=== PATIENT | female | born 1985 | race Caucasian/White ===

== ENCOUNTER 2018-05-13 12:14 | Inpatient (IN) | payer MEDICARE, MEDICAID ==
[~2018-05-13] VITALS: Ht 165.1 cm; Wt 85.7 kg
[2018-05-13] MEDS ORDERED: NS(*) 0.9% 1000 ML BAG 1,000 ML IV ONE (12:30)
[2018-05-13] MEDS ORDERED: ONDANSETRON 4 MG/2 ML VIAL IVP ONE (12:35)
--- NOTE | 2018-05-13 12:37 | ER Report ---
History and Physical Time Seen By MD: 12:25 Hx. of Stated Complaint: PT WAS ESTABLISHING CARE WITH DR LOVE WHEN PT BECAME VERY NAUSEATED VOMITING DRY HEAVING AND FINGER BEDS TURNED BLUE O2 SATS R/A 87% PT PLACED ON O2 AND NEW TO ER. HPI/ROS CHIEF COMPLAINT: Weakness HISTORY OF PRESENT ILLNESS: 32-year-old female comes emergency Department today from the outpatient facility establishing care with a new primary care she is monotone patient while there became somewhat diaphoretic she's had chronic Snyder placed secondary to her history of spinal bifida scoliosis and hydrocephalus. Patient states that she was feeling weak position at the time noted lack of color started noticing that she was starting to get a little shaky to the Center here for evaluation of possible sepsis. On arrival here she is been coughing for last couple of days she does not sensate urinary tract infection however her mom states that her sediment is a baseline for her patient denies any chest pain at this time or additional complaints noted REVIEW OF SYSTEMS: Respiratory: No cough, no dyspnea. Cardiovascular: No chest pain, no palpitations. Gastrointestinal: No vomiting, no abdominal pain. Musculoskeletal: No back pain. Remainder of the 14 system rev: Yes Allergies: Coded Allergies: ceftriaxone (Verified Allergy, Severe, RASH, 05/13/18) iodine (Verified Allergy, Intermediate, 05/13/18) BLOOD BLISTERS FORM meperidine (Verified Allergy, Intermediate, RASH, 05/13/18) nitrofurantoin (Verified Allergy, Intermediate, RASH, 05/13/18) tramadol (Verified Allergy, Unknown, NAUSEA/VOMITING, 05/13/18) SHAKES alcohol (Verified Adverse Reaction, Intermediate, RASH, 05/13/18) RUBBING ALCHOL adhesive tape (Verified Adverse Reaction, Mild, RASH, 05/13/18) latex (Verified Adverse Reaction, Mild, 05/13/18) PRECAUTIONS vancomycin (Verified Adverse Reaction, Mild, RASH, 05/13/18) CAN BE USED IF BENADRYL IS USED AHEAD OF TIME Cephalosporins (Verified Adverse Reaction, Unknown, RASH, 05/13/18) NAUSEA Home Meds Reported Medications Ondansetron Hcl (ZOFRAN) 4 Mg Tablet, 4 MG PO PRN, TAB 05/13/18 Phenazopyridine Hcl (URINARY PAIN RELIEF) 97.5 Mg Tablet, 1 TAB PO BID 05/13/18 [place]-3/Dha/Epa/Fish Oil (Fish Oil Conc 1,000 mg Softgel) 1,000 Mg (120 Mg-180 Mg) Capsule, 1 TAB PO DAILY 05/13/18 Cranberry Extract (CRANBERRY) Unknown Strength Capsule, PO, CAPSULE 05/13/18 Citalopram Hydrobromide (CITALOPRAM HBR) 20 Mg Tablet, 20 MG PO DAILY, #5 TAB 05/13/18 Linaclotide (LINZESS) 290 Mcg Capsule, 290 MCG PO DAILY, CAPSULE 05/13/18 Furosemide (FUROSEMIDE) 40 Mg Tablet, 1 TAB PO BID, TAB 05/13/18 Cholecalciferol (Vitamin D3) (VITAMIN D) 1,000 Unit Capsule, 1000 UNIT PO DAILY , CAPSULE 05/13/18 Potassium Citrate (POTASSIUM CITRATE) 10 Meq Tablet.er, 10 MEQ PO TID 05/13/18 Omeprazole (OMEPRAZOLE) 40 Mg Capsule.dr, 40 MG PO QDAY, CAP 05/13/18 Cilostazol (CILOSTAZOL) 50 Mg Tablet, 50 MG PO BID 05/13/18 Cephalexin Monohydrate (CEPHALEXIN) 500 Mg Cap, 2 CAP PO BID, CAP 05/13/18 Sennosides (SENNA) 8.6 Mg Tablet, 8.6 MG PO BID 05/13/18 Reviewed Nurses Notes: Yes Old Medical Records Reviewed: Yes Smoking Status: Never Smoker Exposure to Second Hand Smoke?: Yes (family smokes outside) Constitutional Vital Sign - Last 24 Hours 05/13/18 05/13/18 05/13/18 05/13/18 12:20 12:26 12:29 12:30 Temp 100.6 Pulse 136 132 Resp 22 23 B/P (MAP) 124/92 (103) 124/92 146/130 (135) Pulse Ox 93 94 O2 Delivery Nasal Cannula Nasal Cannula O2 Flow Rate 2 05/13/18 05/13/18 05/13/18 05/13/18 12:44 12:45 12:59 13:00 Pulse 139 129 Resp 16 B/P (MAP) 114/75 (88) 125/71 (89) Pulse Ox 99 O2 Delivery Nasal Cannula O2 Flow Rate 2 05/13/18 05/13/18 13:14 13:15 Pulse 130 Resp 13 B/P (MAP) 127/69 (88) Pulse Ox 94 Physical Exam General Appearance: The patient is alert, has no immediate need for airway protection and no current signs of toxicity. Appears pale Eyes: Pupils equal and round no injection. Respiratory: Chest is non tender, lungs are clear to auscultation. Cardiac: regular rate and rhythm [ ] Gastrointestinal: Abdomen is soft and non tender, no masses, bowel sounds normal. Musculoskeletal: Neck: Neck is supple and non tender. Extremities have full range of motion and are non tender. Skin: Pale, diaphoretic Neurologic examination patient at baseline with decrease lower 70 functionality was unremarkable DIFFERENTIAL DIAGNOSIS: After history and physical exam differential diagnosis was considered for sepsis unit tract infection pneumonia bronchitis viral infection Medical Decision Making Data Points Laboratory Hematology Test 05/13/18 12:53 05/13/18 13:12 Urine Color Gloria Urine Clarity Cloudy Urine pH 5.0 pH (4.8-9.5) Urine Specific [place] 1.014 Urine Protein 30 mg/dL (NEGATIVE) Urine Glucose (UA) Negative mg/dL (NEGATIVE) Urine Ketones Negative mg/dL (NEGATIVE) Urine Blood Large (NEGATIVE) Urine Nitrite Positive (NEGATIVE) Urine Bilirubin Negative (NEGATIVE) Urine Urobilinogen 4.0 mg/dL (0.2-1.9) Urine Leukocyte Esterase Moderate (NEGATIVE) Urine RBC 58 /HPF (0-2/HPF) Urine WBC 514 /HPF (0-5/HPF) Urine WBC Clumps Many /HPF Urine Squamous Epithelial Cells Many /LPF (NONE-FEW) Urine Amorphous Crystals Few /HPF Urine Bacteria Few /HPF (NONE-FEW) Urine Mucus Few /HPF (NONE-FEW) Lactate 4.9 mmol/L (0.7-2.1) Chemistry Test 05/13/18 12:53 05/13/18 13:12 Urine Color Gloria Urine Clarity Cloudy Urine pH 5.0 pH (4.8-9.5) Urine Specific [place] 1.014 Urine Protein 30 mg/dL (NEGATIVE) Urine Glucose (UA) Negative mg/dL (NEGATIVE) Urine Ketones Negative mg/dL (NEGATIVE) Urine Blood Large (NEGATIVE) Urine Nitrite Positive (NEGATIVE) Urine Bilirubin Negative (NEGATIVE) Urine Urobilinogen 4.0 mg/dL (0.2-1.9) Urine Leukocyte Esterase Moderate (NEGATIVE) Urine RBC 58 /HPF (0-2/HPF) Urine WBC 514 /HPF (0-5/HPF) Urine WBC Clumps Many /HPF Urine Squamous Epithelial Cells Many /LPF (NONE-FEW) Urine Amorphous Crystals Few /HPF Urine Bacteria Few /HPF (NONE-FEW) Urine Mucus Few /HPF (NONE-FEW) Lactate 4.9 mmol/L (0.7-2.1) Coagulation Test 05/13/18 13:12 Urinalysis Test 05/13/18 12:53 Urine Color Gloria Urine Clarity Cloudy Urine pH 5.0 pH (4.8-9.5) Urine Specific [place] 1.014 Urine Protein 30 mg/dL (NEGATIVE) Urine Glucose (UA) Negative mg/dL (NEGATIVE) Urine Ketones Negative mg/dL (NEGATIVE) Urine Blood Large (NEGATIVE) Urine Nitrite Positive (NEGATIVE) Urine Bilirubin Negative (NEGATIVE) Urine Urobilinogen 4.0 mg/dL (0.2-1.9) Urine Leukocyte Esterase Moderate (NEGATIVE) Urine RBC 58 /HPF (0-2/HPF) Urine WBC 514 /HPF (0-5/HPF) Urine WBC Clumps Many /HPF Urine Squamous Epithelial Cells Many /LPF (NONE-FEW) Urine Amorphous Crystals Few /HPF Urine Bacteria Few /HPF (NONE-FEW) Urine Mucus Few /HPF (NONE-FEW) ED Course/Re-evaluation ED Course ED clinical course due to-year-old female presents with concern for sepsis she has both urinary and pulmonary infection started on broad-spectrum antibiotics including Primaxin patient got fluid resuscitation E Guest of 4.1 white count elevated at greater than 32,000 will be admitting today under sepsis protocol [place] acid elevated Decision to Disposition Date: May 13, 2018 Decision to Disposition Time: 13:40 Depart Departure Latest Vital Signs Vital Signs Date Time Temp Pulse Resp B/P (MAP) Pulse Ox O2 Delivery O2 Flow Rate FiO2 05/13/18 13:15 127/69 (88) 05/13/18 13:14 130 13 94 05/13/18 12:44 Nasal Cannula 2 05/13/18 12:26 100.6 Impression: Primary Impression: History of sepsis Additional Impressions: UTI (urinary tract infection) Pneumonia Condition: Improved Disposition: Admitted from ER Referrals: KERMIT LOVE MD (PCP) Problem Qualifiers DESMOND SALCIDO MD May 13, 2018 12:37
--- NOTE | 2018-05-13 13:04 | RADIOLOGY IMAGING REPORT ---
FACILITY: [facility] [place] PATIENT NAME: Nguyen Arce : 1985 MR: [id number] V: [id number] EXAM DATE: ORDERING PHYSICIAN: DESMOND SALCIDO TECHNOLOGIST: Location: [facility] Patient: Nguyen Arce : 1985 Visit/Account:[id number] Date of Sevice: 05/13/2018 CHEST SINGLE AP HISTORY: Vomiting. Sepsis. COMPARISON: None FINDINGS: Cardiomediastinal contours: The heart is mildly enlarged but this could be related to the portable na ture of the examination. Lungs and pleura: There is parenchymal density in the right lung base medially. This could represent in part normal pulmonary markings but an emergent infiltrate cannot be excluded. The left chest is clear. Bones/soft tissues: Status post extensive thoracolumbar fusion with posterior fusion rods. Catheters: The right chest port catheter tip is at the cavoatrial junction. IMPRESSION: 1. Parenchymal density medially in the right lung base. It could be related to normal pulmonary mar kings but an emergent infiltrate cannot be excluded. 2. The left chest is clear. 3. Satisfactory appearance of right internal jugular vein chest port and bilateral lumbar fusion dayami s. Report Dictated By: Antonio Duggan MD at 05/13/2018 12:58 PM Report E-Signed By: Antonio Duggan MD at 05/13/2018 12:59 PM WSN:[id number]
[2018-05-13] MEDS ORDERED: CLINDAMYCIN(*) 600 MG/NS 50 ML 50 ML ONE (13:19)
[2018-05-13] MEDS ORDERED: CLINDAMYCIN 600 MG/4 ML 600 MG in NS(*) 0.9% 100 ML BAG 100 ML IVPB ONE (13:20)
[2018-05-13] MEDS ORDERED: CLINDAMYCIN(*) 600 MG/NS 50 ML 50 ML IVPB ONE (13:25)
[2018-05-13] MEDS ORDERED: IMIPENEM/CILASTA(*) 500MG VIAL 1,000 MG in NS(*) 0.9% 250 ML BAG 250 ML IVPB ONE (13:40)
[2018-05-13 13:57] LABS: INR 1.16
[2018-05-13 14:32] VITALS: BP 98/71
--- NOTE | 2018-05-13 15:50 | History & Physical ---
History of Present Illness Chief Complaint Fever History of Present Illness 32yo female with PMHx significant for spina bifida with lower extremity paresis , neurogenic bladder s/p suprapubic catheter placement. She currently resides with her mother who is her rehab care assistant. Over the past 2-3 days she was noted to have some episodic nausea with vomiting, cough, fever, malaise, and cloudy urine. She was evaluated in her PCP's office and referred to the ER for evaluation. She was found to be hypoxic with elevated WBC count and lactate with evidence of RML pneumonia and UTI. She was recommended for admission. History Problems: (1) Spina bifida Status: Chronic (2) Hydrocephalus Status: Chronic (3) Suprapubic catheter Status: Chronic (4) Sleep related hypoxia Status: Chronic (5) Chronic constipation Status: Chronic (6) Bilateral lower extremity edema Status: Chronic (7) Swallowing disorder Status: Chronic (8) Chronic nausea Status: Chronic (9) RTA (renal tubular acidosis) Status: Chronic (10) Depression Status: Chronic (11) Obesity Status: Chronic (12) Nephrolithiasis Status: Chronic (13) History of sepsis Status: Chronic (14) Fusion of spine Status: Chronic (15) Presence of cerebrospinal fluid drainage device Status: Chronic (16) History of cholecystectomy Status: Chronic Home Meds Reported Medications Ondansetron Hcl (ZOFRAN) 4 Mg Tablet, 4 MG PO PRN, TAB 05/13/18 Phenazopyridine Hcl (URINARY PAIN RELIEF) 97.5 Mg Tablet, 1 TAB PO BID 05/13/18 [place]-3/Dha/Epa/Fish Oil (Fish Oil Conc 1,000 mg Softgel) 1,000 Mg (120 Mg-180 Mg) Capsule, 1 TAB PO DAILY 05/13/18 Cranberry Extract (CRANBERRY) Unknown Strength Capsule, PO, CAPSULE 05/13/18 Citalopram Hydrobromide (CITALOPRAM HBR) 20 Mg Tablet, 20 MG PO DAILY, #5 TAB 05/13/18 Linaclotide (LINZESS) 290 Mcg Capsule, 290 MCG PO DAILY, CAPSULE 05/13/18 Furosemide (FUROSEMIDE) 40 Mg Tablet, 1 TAB PO BID, TAB 05/13/18 Cholecalciferol (Vitamin D3) (VITAMIN D) 1,000 Unit Capsule, 1000 UNIT PO DAILY , CAPSULE 05/13/18 Potassium Citrate (POTASSIUM CITRATE) 10 Meq Tablet.er, 10 MEQ PO TID 05/13/18 Omeprazole (OMEPRAZOLE) 40 Mg Capsule.dr, 40 MG PO QDAY, CAP 05/13/18 Cilostazol (CILOSTAZOL) 50 Mg Tablet, 50 MG PO BID 05/13/18 Cephalexin Monohydrate (CEPHALEXIN) 500 Mg Cap, 2 CAP PO BID, CAP 05/13/18 Sennosides (SENNA) 8.6 Mg Tablet, 8.6 MG PO BID 05/13/18 Allergies: Coded Allergies: ceftriaxone (Verified Allergy, Severe, RASH, 05/13/18) iodine (Verified Allergy, Intermediate, 05/13/18) BLOOD BLISTERS FORM meperidine (Verified Allergy, Intermediate, RASH, 05/13/18) nitrofurantoin (Verified Allergy, Intermediate, RASH, 05/13/18) tramadol (Verified Allergy, Unknown, NAUSEA/VOMITING, 05/13/18) SHAKES alcohol (Verified Adverse Reaction, Intermediate, RASH, 05/13/18) RUBBING ALCHOL adhesive tape (Verified Adverse Reaction, Mild, RASH, 05/13/18) latex (Verified Adverse Reaction, Mild, 05/13/18) PRECAUTIONS vancomycin (Verified Adverse Reaction, Mild, RASH, 05/13/18) CAN BE USED IF BENADRYL IS USED AHEAD OF TIME Cephalosporins (Verified Adverse Reaction, Unknown, RASH, 05/13/18) NAUSEA Patient History: FH: ADHD (attention deficit hyperactivity disorder) BROTHER OR SISTER FH: COPD (chronic obstructive pulmonary disease) FATHER, , Age:54 FH: bipolar disorder BROTHER OR SISTER FH: emphysema FATHER, , Age:54 FH: hypothyroidism MOTHER, Age:59 FH: ovarian cancer BROTHER OR SISTER Hx Smoking: No Smoking Status: Never Smoker Exposure to Second Hand Smoke?: Yes (family smokes outside) Hx Alcohol Use: No Hx Substance Use Disorder: No Social Drug Use: Never Review of Systems Constitutional: Fever, Chills Neurological: Weakness Eyes: No Vision Change ENT: No Hearing Loss Cardiovascular: No Chest Pain, No Palpitations Respiratory: Shortness of Breath, Cough Gastrointestinal: Nausea, Vomiting, No Diarrhea, Constipation Musculoskeletal: Impaired Mobility Psychiatric: Depression, Anxiety Exam Vital Signs Vital Signs Date Time Temp Pulse Resp B/P (MAP) Pulse Ox O2 Delivery O2 Flow Rate FiO2 05/13/18 14:57 98 Nasal Cannula 2.0 05/13/18 14:32 99.4 117 18 98/71 (80) General Appearance: Alert, Awake Neuro: Other (bilateral lower extremity paralysis with significant atrophy) Eyes: PERRLA ENT: Oropharynx Clear, Other (face symmetric) Cardiovascular: Other (Regular slightly tachycardic) Respiratory: Other (scattered rhonchi/no wheezes) Chest: No Tenderness, Other (port right upper chest) GI: Abd Soft and Non-Tender : Other (suprapubic cath site is clean/no drainage noted) Lymph: No Adenopathy Extremities: Warm, Perfused, Other (lower extremities atrophic) Integumentary: Other (healed surgical scars) Psych: Alert & Oriented X3 Medical Decision Making Data Points Item Value Date Time White Blood Count 35.2 k/uL *H 05/13/18 1200 Hemoglobin 13.8 g/dL 05/13/18 1200 Hematocrit 41.8 % 05/13/18 1200 Platelet Count 455 K/uL H 05/13/18 1200 Sodium Level 133 mmol/L L 05/13/18 1200 Potassium Level 3.9 mmol/L 05/13/18 1200 Chloride Level 94 mmol/L L 05/13/18 1200 Carbon Dioxide Level 22 mmol/L 05/13/18 1200 Blood Urea Nitrogen 14 mg/dl 05/13/18 1200 Creatinine 0.90 mg/dl 05/13/18 1200 Glomerular Filtration Rate Calc > 60.0 05/13/18 1200 Random Glucose 113 mg/dl H 05/13/18 1200 Item Value Date Time Urine Color Gloria 05/13/18 1253 Urine Clarity Cloudy 05/13/18 1253 Urine pH 5.0 pH 05/13/18 1253 Urine Specific [place] 1.014 05/13/18 1253 Urine Protein 30 mg/dL 05/13/18 1253 Urine Glucose (UA) Negative mg/dL 05/13/18 1253 Urine Ketones Negative mg/dL 05/13/18 1253 Urine Blood Large 05/13/18 1253 Urine Nitrite Positive H 05/13/18 1253 Urine Bilirubin Negative 05/13/18 1253 Urine Urobilinogen 4.0 mg/dL H 05/13/18 1253 Urine Leukocyte Esterase Moderate H 05/13/18 1253 Urine RBC 58 /HPF 05/13/18 1253 Urine WBC 514 /HPF 05/13/18 1253 Urine WBC Clumps Many /HPF 05/13/18 1253 Urine Squamous Epithelial Cells Many /LPF H 05/13/18 1253 Urine Amorphous Crystals Few /HPF 05/13/18 1253 Urine Bacteria Few /HPF 05/13/18 1253 Urine Mucus Few /HPF 05/13/18 1253 Thyroid Stimulating Hormone (TSH) 1.05 uIU/ml 05/13/18 1200 Vitamin D 25-Hydroxy 38 ng/ml 05/13/18 1200 B-Type Natriuretic Peptide 64 pg/ml 05/13/18 1200 Albumin 4.0 g/dl 05/13/18 1200 Total Protein 7.2 g/dl 05/13/18 1200 C-Reactive Protein 23.2 mg/dl H 05/13/18 1200 Alkaline Phosphatase 136 U/L H 05/13/18 1200 Alanine Aminotransferase (ALT/SGPT) 24 U/L 05/13/18 1200 Aspartate Amino Transf (AST/SGOT) 20 U/L 05/13/18 1200 Total Bilirubin 1.4 mg/dl H 05/13/18 1200 Percent Iron Saturation 8.0 % 05/13/18 1200 Total Iron Binding Capacity 311 ug/dl 05/13/18 1200 Iron Level 25 ug/dl L 05/13/18 1200 Calcium Level 9.3 mg/dl 05/13/18 1200 Lactate 4.9 mmol/L *H 05/13/18 1312 Activated Partial Thromboplast Time 30 seconds 05/13/18 1312 Prothromb Time International Ratio 1.16 05/13/18 1312 Prothrombin Time 14.9 seconds H 05/13/18 1312 D-Dimer Quantitative (PE/DVT) 2.65 ug/ml H 05/13/18 1306 Assessment and Plan Problems: (1) Pneumonia Status: Acute Assessment & Plan: It appears she has a RML infiltrate. It sounds like she has some risk for aspiration as well. Will place on IV Primaxin and supplement oxygen as needed. Cultures have been obtained in the ER. She may need swallow evaluation as well. (2) UTI (urinary tract infection) Status: Acute Assessment & Plan: Possible suprapubic cath associated. Urine culture has been obtained. She is on IV Primaxin as noted above. Will modify antibiotics as needed. (3) Spina bifida Status: Chronic Assessment & Plan: With bilateral lower paresis. She has had previous spine fusion and apparently has some skin issues at times related to the hardware - none currently. (4) Hydrocephalus Status: Chronic Assessment & Plan: She has CSF shunt in place. (5) GERD (gastroesophageal reflux disease) Status: Chronic Assessment & Plan: Continue PPI therapy. Copies to: KERMIT LOVE MD Venous Thromboembolism Antithrombotics Is Pt On Any Antithrombotics?: Yes Exam Sepsis Risk: Possible Sepsis Risk PRINCESS CAMARGO MD May 13, 2018 15:50
[2018-05-13] MEDS: NS(*) 0.9% 1000 ML BAG 1,000 ML IV PRN (16:17)
[2018-05-13 18:02] VITALS: BP 89/63
[2018-05-13] MEDS ORDERED: IV BOLUS 500 ML IVSOL IV ONE (18:10)
[2018-05-13] MEDS: ACETAMINOPHEN 325 MG TAB PO PRN (18:34)
[2018-05-13 19:38] VITALS: BP 111/57
[2018-05-13] MEDS: IMIPENEM/CILASTA(*) 500MG VIAL 500 MG in NS(*) 0.9% 100 ML BAG 100 ML IVPB SCH (19:56)
[2018-05-13] MEDS: CILOSTAZOL 100 MG TAB PO SCH (21:26)
[2018-05-13] MEDS: SENNOSIDES 8.6 MG TAB PO SCH (21:26)
[2018-05-13] MEDS: PROMETHAZINE 25 MG/ML 1 ML AMP IVP PRN (22:24)
[2018-05-13 23:59] VITALS: BP 104/45
[2018-05-14] VITALS (16 sets, daily range): BP systolic 81–125; BP diastolic 45–75; Ht 165.1 cm; Wt 85.7 kg
[2018-05-14] MEDS: NS(*) 0.9% 1000 ML BAG 1,000 ML IV PRN (00:44)
[2018-05-14] MEDS: TIGECYCLINE 50 MG INJS 50 MG in NS(*) 0.9% 100 ML BAG 100 ML IVPB SCH ×2 (00:45→13:28)
[2018-05-14] MEDS: ACETAMINOPHEN 325 MG TAB PO PRN ×3 (00:47→17:22)
[2018-05-14] MEDS: IMIPENEM/CILASTA(*) 500MG VIAL 500 MG in NS(*) 0.9% 100 ML BAG 100 ML IVPB SCH ×4 (01:40→21:12)
[2018-05-14] MEDS ORDERED: NS(*) 0.9% 1000 ML BAG 1,000 ML IV PRN (01:48)
[2018-05-14] MEDS: PROMETHAZINE 25 MG/ML 1 ML AMP IVP PRN ×3 (04:58→16:39)
[2018-05-14 06:08] LABS: PLATELET COUNT, AUTOMATED 335 K/uL (150-450)
[2018-05-14] MEDS ORDERED: KCL (*) 20 MEQ/100 ML PREMIX 100 ML IV ONE ×2 (06:30→11:00)
[2018-05-14] MEDS: ENOXAPARIN 40 MG/0.4ML SYR SC SCH (08:42)
[2018-05-14] MEDS: CILOSTAZOL 100 MG TAB PO SCH ×2 (08:44→21:12)
[2018-05-14] MEDS: CITALOPRAM HYDROBROM 20 MG TAB PO SCH (08:44)
[2018-05-14] MEDS: SENNOSIDES 8.6 MG TAB PO SCH ×2 (08:45→21:00)
[2018-05-14] MEDS: CHOLECALCIFEROL 1000 UNIT TAB PO SCH (08:45)
[2018-05-14] MEDS: PANTOPRAZOLE SOD 40 MG TABEC PO SCH (08:45)
[2018-05-14] MEDS: LINACLOTIDE 290 MCG CAPSULE PO SCH (09:00)
--- NOTE | 2018-05-14 11:43 | Hospitalist Progress Note ---
Subjective Progress Notes Subjective Sleepy this morning. Still having fevers and tachycardic. Physical Exam Vital Signs Date Time Temp Pulse Resp B/P (MAP) Pulse Ox O2 Delivery O2 Flow Rate FiO2 05/14/18 11:03 98.9 106 104/68 (80) 95 Nasal Cannula 2.0 05/14/18 02:29 16 Intake and Output 05/15/18 07:00 Intake Total 160 ml Output Total 425 ml Balance -265 ml Intake Oral 160 ml Output Urine Total 425 ml General Appearance: No Acute Distress (Sweaty. Sleepy) Neuro: Other (Awakens to voice and answers questions/follows commands) Respiratory: Clear to Auscultation GI: Soft and Non-Tender Integumentary: Other (Low back over a scarred area there is a couple mm openning in the skin that appears to tunnel inferiorly. No surrounding erythema. Clear discharge) Result Diagram: 05/14/1842 05/14/18541 Assessment and Plan Problems: (1) Sepsis Status: Acute Assessment & Plan: She presented with a couple days of N/V/cough/cloudy urine/ fever. She continues to be tachycardic, but it is trending down. She continues to spike temperatures to 103. BP is improving. Lactate has normalized. Blood culture without growth (reportedly not done from port). Sputum culture with normal lily so far. Urine culture with GNR x2. (2) Pneumonia Status: Acute Assessment & Plan: It appears she has a RML infiltrate. It sounds like she has some risk for aspiration as well. On IV Primaxin/Tigecycline and supplement oxygen as needed. Cultures have been obtained in the ER. She may need swallow evaluation as well. (3) UTI (urinary tract infection) Status: Acute Assessment & Plan: Possible suprapubic cath associated. Urine culture has been obtained. She is on IV Primaxin/Tigecycline as noted above. Will modify antibiotics as needed. (4) Hypokalemia Status: Acute Assessment & Plan: Secondary to chronic Lasix use. Will replace IV and restart potassium citrate. (5) Spina bifida Status: Chronic Assessment & Plan: With bilateral lower paresis. She has had previous spine fusion and apparently has intermittent skin breakdown over hardware/scar ( chronically on Keflex). There is a couple mm area of skin breakdown. Will ask PT to evaluate. (6) Hydrocephalus Status: Chronic Assessment & Plan: She has CSF shunt in place. (7) GERD (gastroesophageal reflux disease) Status: Chronic Assessment & Plan: Continue PPI therapy. Exam Sepsis Risk: Sepsis Risk STEPHANIE VASQUEZ MD May 14, 2018 11:43
[2018-05-14] MEDS: POTASSIUM CITRATE 540 MG TABCR PO SCH ×2 (14:30→21:12)
[2018-05-14] MEDS ORDERED: MAGNESIUM SUL* 2 GM/50 ML IVPB 50 ML IVPB ONE (16:00)
[2018-05-14] MEDS: KCL (*) 20 MEQ/100 ML PREMIX 100 ML IV SCH ×2 (17:41→21:11)
[2018-05-14] MEDS ORDERED: KETOROLAC 30 MG/ML VIAL IVP ONE (18:55)
[2018-05-15] MEDS: ACETAMINOPHEN 500 MG TAB PO PRN ×3 (00:05→20:52)
[2018-05-15 00:11] VITALS: BP 102/71
[2018-05-15] MEDS: TIGECYCLINE 50 MG INJS 50 MG in NS(*) 0.9% 100 ML BAG 100 ML IVPB SCH ×2 (00:16→14:52)
[2018-05-15] MEDS: IMIPENEM/CILASTA(*) 500MG VIAL 500 MG in NS(*) 0.9% 100 ML BAG 100 ML IVPB SCH ×5 (03:27→22:46)
[2018-05-15] MEDS ORDERED: NS(*) 0.9% 250 ML BAG 250 ML ONE (04:35)
[2018-05-15 05:50] LABS: PLATELET COUNT, AUTOMATED 344 K/uL (150-450)
[2018-05-15] MEDS ORDERED: KCL (*) 20 MEQ/100 ML PREMIX 100 ML IV SCH (08:30)
--- NOTE | 2018-05-15 08:39 | Hospitalist Progress Note ---
Subjective Progress Notes Subjective The patient is having some upper abdominal pain today. Physical Exam Vital Signs Date Time Temp Pulse Resp B/P (MAP) Pulse Ox O2 Delivery O2 Flow Rate FiO2 05/15/18 00:11 98.3 93 18 102/71 (81) 92 Nasal Cannula 2.0 General Appearance: Alert, Awake, No Acute Distress Neuro: Other (No sensation in the lower extremities.) Eyes: PERRLA Cardiovascular: Regular Rate and Rhythm Respiratory: Clear to Auscultation (Anteriorly) GI: Soft and Non-Tender Musculoskeletal: Other (Both LE malformed, small legs and feet.) Extremities: Warm, Perfused, Edema (Both feet puffy, LE with edema bilaterally) Integumentary: Skin Intact without Lesion / Mass Psych: Alert & Oriented X3, Appropriate Mood & Affect Result Diagram: 05/15/1854205/15/18542 Assessment and Plan Problems: (1) Sepsis Status: Acute Assessment & Plan: She presented with a couple days of N/V/cough/cloudy urine/ fever. She is no longer tachycardic. T max past 24 hours is 100.1. BP is improving. Lactate has normalized. Blood culture without growth (reportedly not done from port). Sputum culture with normal lily so far. Urine culture with Enterobacter cloacae complex sensitive to Primaxin. There is also a second gram negative dayami and a gram positive dayami with ID and susceptibility to follow. (2) Pneumonia Status: Acute Assessment & Plan: It appears she has a RML infiltrate. It sounds like she has some risk for aspiration as well. She is refusing a swallowing evaluation (has been done before per the patient's report) and requests to be back on diet as tolerated. She continues on IV Primaxin/Tigecycline and supplement oxygen as needed. Cultures as above. (3) UTI (urinary tract infection) Status: Acute Assessment & Plan: Possible suprapubic cath associated. Urine culture has been obtained. See above. She will continue on IV Primaxin/Tigecycline as noted above until further ID and sensitivities are available. (4) Hypokalemia Status: Acute Assessment & Plan: Secondary to chronic Lasix use. Will replace IV and restart potassium citrate. (5) Spina bifida Status: Chronic Assessment & Plan: With bilateral lower paresis. She has had previous spine fusion and apparently has intermittent skin breakdown over hardware/scar ( chronically on Keflex). There is a couple mm area of skin breakdown. PT wound care has been consulted. (6) Hydrocephalus Status: Chronic Assessment & Plan: She has CSF shunt in place. (7) GERD (gastroesophageal reflux disease) Status: Chronic Assessment & Plan: Continue PPI therapy. Time Spent on Plan of Care: < 30 min Exam Sepsis Risk: Sepsis Risk REYNALDO CAMARGO MD May 15, 2018 08:39
[2018-05-15] MEDS: LINACLOTIDE 290 MCG CAPSULE PO SCH (09:00)
[2018-05-15] MEDS: SENNOSIDES 8.6 MG TAB PO SCH ×2 (09:00→20:52)
[2018-05-15 09:36] VITALS: BP 106/68
[2018-05-15] MEDS: PANTOPRAZOLE SOD 40 MG TABEC PO SCH (10:22)
[2018-05-15] MEDS: CILOSTAZOL 100 MG TAB PO SCH ×2 (10:22→20:52)
[2018-05-15] MEDS: CHOLECALCIFEROL 1000 UNIT TAB PO SCH (10:23)
[2018-05-15] MEDS: CITALOPRAM HYDROBROM 20 MG TAB PO SCH (10:23)
[2018-05-15] MEDS: POTASSIUM CITRATE 540 MG TABCR PO SCH ×3 (10:23→20:52)
[2018-05-15] MEDS: ENOXAPARIN 40 MG/0.4ML SYR SC SCH (10:24)
[2018-05-15] MEDS ORDERED: NS(*) 0.9% 1000 ML BAG 1,000 ML ONE (10:51)
[2018-05-15] MEDS: CELECOXIB 200 MG CAP PO PRN (12:47)
[2018-05-15] MEDS: PROMETHAZINE 25 MG/ML 1 ML AMP IVP PRN ×3 (12:47→23:45)
--- NOTE | 2018-05-15 14:17 | Medical Nutrition Therapy ---
Nutrition Anthropometrics Height (Inches): 65.00 Height (Calculated Centimeters: 165.037394 Weight (Pounds): 189 Weight (Calculated Kilograms): 85.729 Jorge Nutrition Score: Adequate Jorge Nutrition Risk Score: 13 Dietary Referral Nutrition Risk Factors: Nutrition Risk Comment: Physical Findings Physical Appearance: Obese BMI 30-39 Skin Appearance Skin Appearance: Edema Edema Location Modifier: Both Edema Location: Lower Extremity Type of Edema: Degree of Edema: Gastrointestinal Symptoms GI Symtoms: Nausea Tube Present: Bowel Sounds: Recent Bowel Pattern: Incontinent Stool Characteristics: Brown, Soft Nutrition/Food History No Significant Nutr. HX Nutritional Diagnosis Nutritional Risk Acuity 2: Swallowing Problem, Sepsis Nutritional Risk Acuity 3: Nausea Past Medical History: spina bifida with bilateral lower paresis, GERD Nutritional Acuity: 2-Moderate Nutrition Diagnosis: Inadequate Food Intake Nutrition Etiology: Physiological Causes Nutrition Problem/Etiology/Sym: Inadequate Oral Intake related to decreased ability to consume sufficient energy, e.g. vomiting/nausea AEB reports of insufficient intake of energy from diet when compared to requirements and low albumin status. Energy Requirement: 2200 ([place] Jeor: Actual BW X 1.4) Protein Requirement: 69 (Actual BW Kg X .8) Fluid Requirement: 2200 Diet Type: Dysphagia Stage 3 Nutrition Intervention: Cont diet as ordered, Encourage intake Nutrition Monitoring & Eval Nutrition Goals: Eat 50-100% Meal RD Patient Assessment Time: [address] Assessment Type: RD Re-Assessment Patient Nutrition Acuity: 2-Moderate Follow Up Date: May 17, 2018 Nutritional Comment: 05/14. Pt was admitted b/c of weakness for a couple days. Pt has sepsis, pneumonia, UTI and experiencing nausea. WBC is high 28.3, and seeing a depletion of potassium 2.8 and Alb 2.9. Pt has hc spina bifida and is receiving Dysphagia Diet Stage 3. Pt ate 100% of dinner meal. Cont to monitor and encourage intake. MR 8/3 High WBC, Alb 2.9, Ca+8.1, Mg 2.3, Na+136. Continues to receive Dysphagia Stage 3 diet with 0% intake today d/t nausea/vomiting. Follow clinical progression, wt, labs, intake, etc. -KEITH BRIGHT May 15, 2018 14:17
[2018-05-15 14:55] VITALS: BP 105/64
[2018-05-15 19:12] VITALS: BP 100/61
[2018-05-15] MEDS ORDERED: KCL (*) 20 MEQ/100 ML PREMIX 100 ML IV ONE (19:30)
[2018-05-15 20:40] VITALS: BP 107/80
[2018-05-15 22:45] VITALS: BP 108/73
[2018-05-16] MEDS: CELECOXIB 200 MG CAP PO PRN (00:55)
[2018-05-16] MEDS: IMIPENEM/CILASTA(*) 500MG VIAL 500 MG in NS(*) 0.9% 100 ML BAG 100 ML IVPB SCH ×2 (04:17→11:08)
[2018-05-16 04:21] VITALS: BP 114/61
[2018-05-16 06:20] LABS: PLATELET COUNT, AUTOMATED 370 K/uL (150-450)
[2018-05-16 07:56] VITALS: BP 116/67
[2018-05-16] MEDS: LINACLOTIDE 290 MCG CAPSULE PO SCH (09:00)
[2018-05-16] MEDS ORDERED: KCL (*) 20 MEQ/100 ML PREMIX 100 ML IV ONE (10:00)
[2018-05-16] MEDS: POTASSIUM CITRATE 540 MG TABCR PO SCH ×2 (11:09→14:43)
[2018-05-16] MEDS: ENOXAPARIN 40 MG/0.4ML SYR SC SCH (11:09)
[2018-05-16] MEDS: CILOSTAZOL 100 MG TAB PO SCH (11:10)
[2018-05-16] MEDS: CITALOPRAM HYDROBROM 20 MG TAB PO SCH (11:10)
[2018-05-16] MEDS: PANTOPRAZOLE SOD 40 MG TABEC PO SCH (11:10)
[2018-05-16] MEDS: CHOLECALCIFEROL 1000 UNIT TAB PO SCH (11:10)
[2018-05-16 11:25] VITALS: BP 115/74
--- NOTE | 2018-05-16 12:06 | EKG ---
FACILITY: [facility] - [place] PATIENT NAME: CORIE KNIGHT : [id number] MR: [id number] V: [id number] EXAM DATE: ORDERING PHYSICIAN: YAKOV GOODSON TECHNOLOGIST: OMA Mckenzie Reason : EVALUATE QT Blood Pressure : / mmHG Vent. Rate : 103 BPM Atrial Rate : 103 BPM P-R Int : 136 ms QRS Dur : 074 ms QT Int : 342 ms P-R-T Axes : 031 000 012 degrees QTc Int : 448 ms Sinus tachycardia Abnormal ECG No previous ECGs available Confirmed by Yakov Duke ([id number]) on 05/16/2018 5:54:04 PM Referred By: KEMI Confirmed By:Yakov Goodson
[2018-05-16] MEDS ORDERED: LEVOFLOXACIN 750 MG TAB PO SCH (12:40)
[2018-05-16] MEDS ORDERED: LEVO750T27 PO (12:44)
--- NOTE | 2018-05-16 12:57 | Hospitalist Depart ---
Discharge Summary Reason for Hosp/Final Diag: (1) Sepsis Status: Acute Hospital Course & Plan: Resolved. She presented with a couple days of N/V/cough /cloudy urine/fever. Afebrile over 48 hours, Lactate has normalized. Blood culture no growth to date. Urine culture with Enterobacter cloacae complex and pseudomonas sensitive to Levaquin. EKG obtained as had been on 3 QT prolonging medications and considering Levaquin for outpt therapy. (2) Pneumonia Status: Acute Hospital Course & Plan: It appears she has a RML infiltrate. It sounds like she has some risk for aspiration as well. She is refusing a swallowing evaluation (has been done before per the patient's report) and requests to be back on diet as tolerated. Cultures as above. (3) UTI (urinary tract infection) Status: Acute Hospital Course & Plan: Urine culture has been obtained, see above. EKG without QT prolongation, recommend stopping Zofran while on Levaquin, Levaquin has been documented to have minimal/negligible effect on QT. (4) Hypokalemia Status: Acute Hospital Course & Plan: Secondary to chronic Lasix use. Will replace IV and restart potassium citrate. Stop Lasix until follow up with PCP, recheck K at that time. (5) Spina bifida Status: Chronic Hospital Course & Plan: With bilateral lower paresis. She has had previous spine fusion and apparently has intermittent skin breakdown over hardware/scar ( chronically on Keflex). There is a couple mm area of skin breakdown. PT wound care has been consulted. (6) Hydrocephalus Status: Chronic Hospital Course & Plan: She has CSF shunt in place. (7) GERD (gastroesophageal reflux disease) Status: Chronic Hospital Course & Plan: Continue PPI therapy. Departure Weight (Pounds): 189 Weight (Ounces): 1.0 Result Diagram: 05/16/1855405/16/18554 Condition: Improved Discharge: Home Health Home Health RN Follow Up For: Nursing Assessment Discharge Instructions Home Meds Active Scripts Levofloxacin 750 Mg Tab (LEVOFLOXACIN 750 MG TAB) 750 Mg Tablet, 750 MG PO QAM for 3 Days, #3 TAB Prov:YAKOV RHODES DO 05/16/18 Reported Medications Phenazopyridine Hcl (URINARY PAIN RELIEF) 97.5 Mg Tablet, 1 TAB PO BID 05/13/18 Hanna-3/Dha/Epa/Fish Oil (Fish Oil Conc 1,000 mg Softgel) 1,000 Mg (120 Mg-180 Mg) Capsule, 1 TAB PO DAILY 05/13/18 Cranberry Extract (CRANBERRY) Unknown Strength Capsule, PO, CAPSULE 05/13/18 Citalopram Hydrobromide (CITALOPRAM HBR) 20 Mg Tablet, 20 MG PO DAILY, #5 TAB 05/13/18 Linaclotide (LINZESS) 290 Mcg Capsule, 290 MCG PO DAILY, CAPSULE 05/13/18 Cholecalciferol (Vitamin D3) (VITAMIN D) 1,000 Unit Capsule, 1000 UNIT PO DAILY , CAPSULE 05/13/18 Potassium Citrate (POTASSIUM CITRATE) 10 Meq Tablet.er, 10 MEQ PO TID 05/13/18 Omeprazole (OMEPRAZOLE) 40 Mg Capsule.dr, 40 MG PO QDAY, CAP 05/13/18 Cilostazol (CILOSTAZOL) 50 Mg Tablet, 50 MG PO BID 05/13/18 Sennosides (SENNA) 8.6 Mg Tablet, 8.6 MG PO BID 05/13/18 Discontinued Reported Medications Ondansetron Hcl (ZOFRAN) 4 Mg Tablet, 4 MG PO PRN, TAB 05/13/18 Furosemide (FUROSEMIDE) 40 Mg Tablet, 1 TAB PO BID, TAB 05/13/18 Cephalexin Monohydrate (CEPHALEXIN) 500 Mg Cap, 2 CAP PO BID, CAP 05/13/18 Venous Thromboembolism Antithrombotics Is Pt On Any Antithrombotics?: Yes [id number]-[id number] Certification Face to Face Home Health Certification Institutional Provider conducted the [id number] encounter. Electronic Undersigning Physician Certifies Home Health. I certify that the patient has been under my care and that I had a [id number] encounter that meets the physician [id number] encounter requirements with this patient. This patient is home-bound due to safety issues and continues to require assistance with ADL's. I certify that based on my findings, that Nursing, Aides and the following Home Health services are medically necessary: Medication monitoring, ADL. YAKOV RHODES DO May 16, 2018 12:57
[2018-05-16] MEDS ORDERED: HEPARIN FLSH (PORT) 500 UN/5ML ONE (14:11)
== END 2018-05-16 14:55 | disposition home health service (06) | DRG 871 ==
LOC: ER 12:32 → MED 13:44
PROVIDERS: ADMIT Internal Medicine; ATTEND Internal Medicine
DX: A41.9 Sepsis, unspecified organism (principal); J18.9 Pneumonia, unspecified organism; N39.0 Urinary tract infection, site not specified; G91.9 Hydrocephalus, unspecified; E87.6 Hypokalemia; Q05.9 Spina bifida, unspecified; K21.9 Gastro-esophageal reflux disease without esophagitis; R09.02 Hypoxemia; G47.34 Idiopathic sleep related nonobstructive alveolar hypoventilation; K59.09 Other constipation; N25.89 Other disorders resulting from impaired renal tubular function; F32.9 Major depressive disorder, single episode, unspecified; E66.9 Obesity, unspecified; N20.0 Calculus of kidney; B96.89 Other specified bacterial agents as the cause of diseases classified elsewhere; B96.5 Pseudomonas (aeruginosa) (mallei) (pseudomallei) as the cause of diseases classified elsewhere; Z98.1 Arthrodesis status; Z98.2 Presence of cerebrospinal fluid drainage device; Z88.8 Allergy status to other drugs, medicaments and biological substances; Z91.040 Latex allergy status; Z88.1 Allergy status to other antibiotic agents; Z90.49 Acquired absence of other specified parts of digestive tract; Z68.31 Body mass index [BMI] 31.0-31.9, adult
CPT/HCPCS: 36415; 71045; 81001; 82040; 82247; 82306; 82310; 82374; 82435; 82565; 82607; 82746; 82947; 83540; 83550; 83605; 83735; 83880; 84075; 84132; 84155; 84295; 84443; 84450; 84460; 84520; 85025; 85379; 85610; 85651; 85730; 86140; 87040; 87070; 87077; 87088; 87186; 93005; 96365; 96367; 96375; 97161; 99284; A4338; J0743; J1642; J1650; J1885; J2405; J2550; J3243; J3475; J3480; J3490; J7030; J7050

== ENCOUNTER → 2018-05-13 | Outpatient (CLI) | payer MEDICARE, MEDICAID ==
[~2018-05-13] MED LIST: CEPH500C24 PO; CHOL100058 PO; CILO50TA PO; CITA-145 PO; CRAN200C5 PO; FURO-47 PO; LINA290C PO; OMEG10006 PO; OMEP40CA48 PO; ONDA4TAB97 PO; POTA-35 PO; SENN8.6T34 PO; [UNRECOGNIZED DRUG - CODE] PO
[2018-05-13 12:24] LABS: PLATELET COUNT, AUTOMATED 455 K/uL (150-450)
== END ==
LOC: LAB 11:53
PROVIDERS: ATTEND Emergency Medicine
DX: Q05.9 Spina bifida, unspecified (principal); R09.02 Hypoxemia
CPT/HCPCS: 36415; 82040; 82247; 82306; 82310; 82374; 82435; 82565; 82607; 82746; 82947; 83540; 83550; 83880; 84075; 84132; 84155; 84295; 84443; 84450; 84460; 84520; 85025; 85379; 85651; 86140

== ENCOUNTER → 2018-05-27 | Outpatient (CLI) | payer MEDICARE, MEDICAID ==
[2018-05-14 12:33] VITALS: BMI 31.4
[~2018-05-27] MED LIST changes: +LEVO750T27 PO
== END ==
LOC: LAB 11:07
PROVIDERS: ATTEND Emergency Medicine
DX: Z02.9 Encounter for administrative examinations, unspecified (principal)

== ENCOUNTER → 2018-05-28 | Outpatient (REF) | payer MEDICARE, MEDICAID ==
[2018-05-14 12:33] VITALS: BMI 31.4
== END ==
LOC: ZZSENDIN 13:07
PROVIDERS: ATTEND Emergency Medicine
DX: E87.6 Hypokalemia (principal)
CPT/HCPCS: 82310; 82374; 82435; 82565; 82947; 84132; 84295; 84520

== ENCOUNTER → 2018-06-01 | Outpatient (CLI) | payer MEDICARE, MEDICAID ==
[2018-05-14 12:33] VITALS: BMI 31.4
== END ==
LOC: LAB 11:48
PROVIDERS: ATTEND Emergency Medicine
DX: D64.9 Anemia, unspecified (principal)
CPT/HCPCS: 82274

== ENCOUNTER → 2018-06-05 | Outpatient (CLI) | payer MEDICARE, MEDICAID ==
[2018-05-14 12:33] VITALS: BMI 31.4
[~2018-06-05] MED LIST changes: +ALTEPLASE RECOMB 2 MG VIAL IVP PRN; +DEXTROSE 5%(*) 100 ML BAG 100 ML IVPB PRN; +FERR-53 PO; +LIDOCAINE/SOD BICARB 8.4% SYR ID PRN; +NS(*) 0.9% 100 ML BAG 100 ML IVPB PRN; +NS(*) 0.9% 500 ML BAG 500 ML IV PRN; +WATER FOR INJ,STERILE 20 ML IVP PRN
[2018-06-05] MEDS: HEPARIN FLSH (PORT) 500 UN/5ML IVP PRN ×2 (13:03→15:47)
[2018-06-05 13:17] VITALS: BP 128/86
== END ==
LOC: SPU 08:44
PROVIDERS: ATTEND Emergency Medicine
DX: E87.6 Hypokalemia (principal)
CPT/HCPCS: 36591; 36593; 96374; J1642; J2997; 82310; 82374; 82435; 82565; 82947; 84132; 84295; 84520

== ENCOUNTER → 2018-06-17 | Outpatient (REF) | payer MEDICARE, MEDICAID ==
[2018-05-14 12:33] VITALS: BMI 31.4
[~2018-06-17] MED LIST changes: -ALTEPLASE RECOMB 2 MG VIAL IVP PRN; -DEXTROSE 5%(*) 100 ML BAG 100 ML IVPB PRN; -LIDOCAINE/SOD BICARB 8.4% SYR ID PRN; -NS(*) 0.9% 100 ML BAG 100 ML IVPB PRN; -NS(*) 0.9% 500 ML BAG 500 ML IV PRN; +POTA20TA94 PO; -WATER FOR INJ,STERILE 20 ML IVP PRN
== END ==
LOC: ZZSENDIN 14:12
PROVIDERS: ATTEND Emergency Medicine
DX: E87.6 Hypokalemia (principal)
CPT/HCPCS: 82310; 82374; 82435; 82565; 82947; 83735; 84132; 84295; 84520

== ENCOUNTER → 2018-07-06 | Outpatient (CLI) | payer MEDICARE, MEDICAID ==
[2018-05-14 12:33] VITALS: BMI 31.4
--- NOTE | 2018-07-06 17:40 | RADIOLOGY IMAGING REPORT ---
[place] [facility] [place] Nguyen Arce : 1985 MR: [id number] V: [id number] EXAM DATE: ORDERING PHYSICIAN: KERMIT LOVE TECHNOLOGIST: Location: [facility] - [place] Patient: Nguyen Arce : 1985 Visit/Account:[id number] Date of Sevice: 07/06/2018 DEXA Scan Clinical history: Long-term use of Depo-Provera. Comparison: . HIP: Bone mineral density (BMD) measured in the Left total hip region correlates with a Z-score -3.7 and a T-score of -3.5 which is osteoporosis as defined by the World Health Organization. The correspond ing risk of fracture in the hip is 12 times increased compared with a young adult reference populatio n. Bone mineral density (BMD) measured in the Femoral Neck region measures 0.469 g/cm2. FOREARM: The bone mineral density (BMD) measured in the ULTRADISTAL right forearm, where trabecular bone predo minates, correlates with a Z-score 0.3 and a T-score of 0.3 which is normal as defined by the World H ealth Organization. The corresponding risk of fracture in the distal forearm is not increased compar ed with a young adult reference population. The bone mineral density (BMD) in the MIDSHAFT of the forearm, where cortical bone predominates, michele elates with a Z-score 0.9 and a T-score of 0.9 which is normal as defined by the World Health Organiz ation. The corresponding risk of fracture in the midshaft of the forearm is not increased compared wi th a young adult reference population. IMPRESSION: 1. Left Hip: Osteoporosis. 2. Femoral Neck: Bone Mineral Density is 0.469 g/cm2 3. Right Forearm: Normal. The next DEXA scan of this patient should include the following sites: Left hip and the right forearm . FRAX? WHO Fracture Risk Assessment Tool link: <http://www.shef.ac.uk/FRAX/tool.jsp?locationValue=9> PLEASE NOTE: 1) The World Health Organization defines low BMD as follows: T-score Normal > -1 Osteopenia < -1 and > -2.5 Osteoporosis < -2.5 without fractures Established osteoporosis < -2.5 with fractures 2) In general, you may wish to consider: Diagnosis Treatment Follow-up DEXA Normal BMD Prevention 2-3 years Osteopenia Prevention/therapy 1-2 years Osteoporosis Therapy Yearly 3) Fracture risk estimated from the T-score is more accurate for vertebral fractures (often spontane ous) than for hip fractures. Report Dictated By: Lauren Campbell MD at 07/06/2018 5:31 PM Report E-Signed By: Lauren Campbell MD at 07/06/2018 5:36 PM WSN:[email or web address]
== END ==
LOC: RAD 04:45
PROVIDERS: ATTEND Emergency Medicine
DX: M81.0 Age-related osteoporosis without current pathological fracture (principal)
CPT/HCPCS: 77080

== ENCOUNTER → 2018-07-08 | Outpatient (CLI) | payer MEDICARE, MEDICAID ==
[2018-05-14 12:33] VITALS: BMI 31.4
[~2018-07-08] MED LIST changes: +ALTEPLASE RECOMB 2 MG VIAL IVP PRN; +DEXTROSE 5%(*) 100 ML BAG 100 ML IVPB PRN; +HEPARIN FLSH (PORT) 500 UN/5ML IVP PRN; +LIDOCAINE/SOD BICARB 8.4% SYR ID PRN; +NS(*) 0.9% 100 ML BAG 100 ML IVPB PRN; +NS(*) 0.9% 500 ML BAG 500 ML IV PRN; +WATER FOR INJ,STERILE 20 ML IVP PRN
[2018-07-08 11:52] VITALS: BP 133/86
== END ==
LOC: SPU 07:43
PROVIDERS: ATTEND Emergency Medicine
DX: E87.6 Hypokalemia (principal); M81.0 Age-related osteoporosis without current pathological fracture
CPT/HCPCS: 36591; 82310; 82784; 83516; 83970; J1642

== ENCOUNTER → 2018-07-13 | Outpatient (CLI) | payer MEDICARE, MEDICAID ==
[2018-05-14 12:33] VITALS: BMI 31.4
[~2018-07-13] MED LIST changes: -ALTEPLASE RECOMB 2 MG VIAL IVP PRN; -DEXTROSE 5%(*) 100 ML BAG 100 ML IVPB PRN; -HEPARIN FLSH (PORT) 500 UN/5ML IVP PRN; -LIDOCAINE/SOD BICARB 8.4% SYR ID PRN; -NS(*) 0.9% 100 ML BAG 100 ML IVPB PRN; -NS(*) 0.9% 500 ML BAG 500 ML IV PRN; -WATER FOR INJ,STERILE 20 ML IVP PRN
--- NOTE | 2018-07-13 13:48 | RADIOLOGY IMAGING REPORT ---
FACILITY: [facility] PATIENT NAME: Nguyen Arce : 1985 MR: [id number] V: [id number] EXAM DATE: ORDERING PHYSICIAN: KERMIT LOVE TECHNOLOGIST: Location: [facility] - [place] Patient: Nguyen Arce : 1985 Visit/Account:[id number] Date of Sevice: 07/13/2018 EXAMINATION: Thyroid ultrasound HISTORY: Hyperparathyroidism, hyperthyroidism COMPARISON: None. FINDINGS: The right thyroid lobe measures 5.8 x 3.5 x 4.5 cm. The left thyroid lobe measures 3 x 1.2 x 1 cm. The isthmus measures 0.8 cm. There is a hypoechoic lobulated nodule within the right mid to lower th yroid lobe measuring 4.1 x 2.3 x 4.1 cm with mild to moderate internal blood flow. No additional nod ule identified. Otherwise unremarkable thyroid gland. No apparent nodularity adjacent to the thyroid lobes. IMPRESSION: Nonspecific right mid to lower thyroid nodule measuring up to 4.1 cm for which fine-needle aspiration is recommended for tissue characterization based on size criteria. Report Dictated By: Gopal Small MD at 07/13/2018 1:41 PM Report E-Signed By: Gopal Small MD at 07/13/2018 1:44 PM WSN:[email or web address]
== END ==
LOC: US 00:47
PROVIDERS: ATTEND Emergency Medicine
DX: E04.1 Nontoxic single thyroid nodule (principal)
CPT/HCPCS: 76536

== ENCOUNTER → 2018-07-17 | Outpatient (CLI) | payer MEDICARE, MEDICAID ==
[2018-05-14 12:33] VITALS: BMI 31.4
[~2018-07-17] MED LIST changes: +ALTEPLASE RECOMB 2 MG VIAL IVP PRN; +DEXTROSE 5%(*) 100 ML BAG 100 ML IVPB PRN; +FLU60VIA41 IM; +HEPARIN FLSH (PORT) 500 UN/5ML IVP PRN; +LIDOCAINE/SOD BICARB 8.4% SYR ID PRN; +NS(*) 0.9% 100 ML BAG 100 ML IVPB PRN; +NS(*) 0.9% 500 ML BAG 500 ML IV PRN; +WATER FOR INJ,STERILE 20 ML IVP PRN
[2018-07-17 11:07] VITALS: BP 120/70
[2018-07-17 11:30] LABS: PLATELET COUNT, AUTOMATED 455 K/uL (150-450)
[2018-07-17 11:39] LABS: INR 1.02
[2018-07-17 11:45] LABS: LDL CHOLESTEROL 81 mg/dl
== END ==
LOC: SPU 06:53
PROVIDERS: ATTEND Emergency Medicine
DX: Z01.818 Encounter for other preprocedural examination (principal); E04.1 Nontoxic single thyroid nodule; N92.0 Excessive and frequent menstruation with regular cycle; D64.9 Anemia, unspecified; E66.9 Obesity, unspecified; D72.829 Elevated white blood cell count, unspecified
CPT/HCPCS: 36591; 85025; 85240; 85245; 85246; 85610; 85730; 86140; J1642; 82040; 82247; 82310; 82374; 82435; 82465; 82565; 82947; 83718; 84075; 84132; 84155; 84295; 84450; 84460; 84478; 84520

== ENCOUNTER → 2018-07-17 | Outpatient (CLI) | payer MEDICARE, MEDICAID ==
[2018-05-14 12:33] VITALS: BMI 31.4
[~2018-07-17] MED LIST changes: -ALTEPLASE RECOMB 2 MG VIAL IVP PRN; -DEXTROSE 5%(*) 100 ML BAG 100 ML IVPB PRN; -HEPARIN FLSH (PORT) 500 UN/5ML IVP PRN; -LIDOCAINE/SOD BICARB 8.4% SYR ID PRN; -NS(*) 0.9% 100 ML BAG 100 ML IVPB PRN; -NS(*) 0.9% 500 ML BAG 500 ML IV PRN; -WATER FOR INJ,STERILE 20 ML IVP PRN
== END ==
LOC: LAB 10:41
PROVIDERS: ATTEND Emergency Medicine
DX: D72.829 Elevated white blood cell count, unspecified (principal)
CPT/HCPCS: 86140

== ENCOUNTER → 2018-07-20 | Outpatient (REF) | payer MEDICARE, MEDICAID ==
[2018-05-14 12:33] VITALS: BMI 31.4
== END ==
PROVIDERS: ATTEND Emergency Medicine
DX: D72.829 Elevated white blood cell count, unspecified (principal); B96.5 Pseudomonas (aeruginosa) (mallei) (pseudomallei) as the cause of diseases classified elsewhere
CPT/HCPCS: 81001; 82570; 84133; 87077; 87088; 87186

== ENCOUNTER → 2018-07-24 | Outpatient (CLI) | payer MEDICARE, MEDICAID ==
[2018-05-14 12:33] VITALS: BMI 31.4
[~2018-07-24] MED LIST changes: +LIDOCAINE MPF 1% 5 ML VIAL ONE
--- NOTE | 2018-07-24 15:16 | RADIOLOGY IMAGING REPORT ---
FACILITY: [facility] - [place] PATIENT NAME: Nguyen Arce : 1985 MR: [id number] V: [id number] EXAM DATE: ORDERING PHYSICIAN: KERMIT LOVE TECHNOLOGIST: Location: [facility] Patient: Nguyen Arce : 1985 Visit/Account:[id number] Date of Sevice: 07/24/2018 Exam type: THYROID BIOPSY FINE NEEDLE ASP History: thyroid nodule Comparison: Thyroid ultrasound July 13, 2018. Findings: Informed consent was obtained. The right-sided the patient's neck was prepped and draped usual steri le fashion. Local anesthesia was accomplished with 1% lidocaine. Under sonographic guidance four 25 -gauge FNA biopsies were obtained through the dominant nodule in the right lobe the thyroid gland. T he samples were given to the pathology teacher for processing. The procedure was accomplished w ithout apparent complication. IMPRESSION: 1. Successful sonographically guided FNA biopsy of the dominant right thyroid mass Report Dictated By: Lauren Campbell MD at 07/24/2018 3:09 PM Report E-Signed By: Lauren Campbell MD at 07/24/2018 3:11 PM WSN:[email or web address]
== END ==
LOC: US 04:20
PROVIDERS: ATTEND Emergency Medicine
DX: E04.1 Nontoxic single thyroid nodule (principal)
CPT/HCPCS: 10022; 76942; 88104; 88172; J2001

== ENCOUNTER 2018-07-31 20:06 | Emergency (ER) | payer MEDICARE, MEDICAID ==
[2018-05-14 12:33] VITALS: Wt 87.5 kg
[~2018-07-31 20:06] MED LIST changes: -LIDOCAINE MPF 1% 5 ML VIAL ONE
[2018-07-31 20:13] VITALS: BP 116/66
[2018-07-31] MEDS ORDERED: ONDANSETRON 4 MG/2 ML VIAL IVP ONE (20:20)
[2018-07-31] MEDS ORDERED: NS(*) 0.9% 1000 ML BAG 1,000 ML IV ONE (20:20)
--- NOTE | 2018-07-31 20:20 | ER Report ---
History and Physical Time Seen By MD: 20:14 Hx. of Stated Complaint: PT WORRIED ABOUT POSSIBLE SEPSIS. PT HAS SP CATH. VOMITING SINCE YESTERDAY. HPI/ROS CHIEF COMPLAINT: Fever, loose stools HISTORY OF PRESENT ILLNESS: 33-year-old female with his history spina bifida chronically on Keflex for open wound of the back. The wound has remained closed since being on Keflex. Mom and patient state that when the Keflex to stop the wound opens up. Patient has an indwelling suprapubic catheter. Her urine is being clear. They noted illness of approximately 3-4 days of increasing loose stools ever and chills with sweats. Mom notes that she's been increasingly lethargic and sleeping a lot. This usually occurs when she has an infection. Sore throat, rhinitis, cough or ear pain. Mom notes her some irritation around her suprapubic catheter. Her urine appears clear and the Snyder catheter. It is quite yellow appearing. Patient's been having some some vomiting. She's been able to keep very little down for the last 2 days except for some water. She complains of severe nausea. She's not been having any dry heaves. Mom reports that yesterday she was having formed stools and now they've become quite watery. He could have clustered and if so secondary to the chronic Keflex use for suppression of the back wound area infection. REVIEW OF SYSTEMS: Respiratory: No cough, no dyspnea. Cardiovascular: No chest pain, no palpitations. Gastrointestinal: No vomiting, no abdominal pain. Musculoskeletal: No back pain. Allergies: Coded Allergies: ceftriaxone (Verified Allergy, Severe, RASH, 07/31/18) iodine (Verified Allergy, Intermediate, 07/31/18) BLOOD BLISTERS FORM meperidine (Verified Allergy, Intermediate, RASH, 07/31/18) nitrofurantoin (Verified Allergy, Intermediate, RASH, 07/31/18) tramadol (Verified Allergy, Unknown, NAUSEA/VOMITING, 07/31/18) SHAKES alcohol (Verified Adverse Reaction, Intermediate, RASH, 07/31/18) RUBBING ALCHOL adhesive tape (Verified Adverse Reaction, Mild, RASH, 07/31/18) latex (Verified Adverse Reaction, Mild, 07/31/18) PRECAUTIONS vancomycin (Verified Adverse Reaction, Mild, RASH, 07/31/18) CAN BE USED IF BENADRYL IS USED AHEAD OF TIME Cephalosporins (Verified Adverse Reaction, Unknown, RASH, 07/31/18) NAUSEA Home Meds Active Scripts Ciprofloxacin Hcl 500 Mg Tab (CIPRO 500 MG TAB) 500 Mg Tablet, 500 MG PO BID for infection, #14 Prov:ARUN LYON DO 07/31/18 Ondansetron (ZOFRAN ODT) 4 Mg Tab.rapdis, 4 MG PO every 6 hours PRN for NAUSEA/VOMITING, #10 TAB TAKE 1 TABLET BY MOUTH EVERY 12 HOURS Prov:ARUN LYON DO 07/31/18 Potassium Chloride (POTASSIUM CHLORIDE) 20 Meq Tab.er.prt, 3 TAB PO QDAY, #42 TAB 0 Refills Prov:KERMIT LOVE MD 07/30/18 Reported Medications Ferrous Sulfate (FERROUS SULFATE) 325 Mg Tablet, 325 MG PO DAILY 06/04/18 Cephalexin Monohydrate (CEPHALEXIN) 500 Mg Cap, 2 CAP PO BID, CAP 05/27/18 Phenazopyridine Hcl (URINARY PAIN RELIEF) 97.5 Mg Tablet, 1 TAB PO BID 05/13/18 Citalopram Hydrobromide (CITALOPRAM HBR) 20 Mg Tablet, 20 MG PO DAILY, #5 TAB 05/13/18 Linaclotide (LINZESS) 290 Mcg Capsule, 290 MCG PO DAILY, CAPSULE 05/13/18 Cholecalciferol (Vitamin D3) (VITAMIN D) 1,000 Unit Capsule, 1000 UNIT PO DAILY, CAPSULE 05/13/18 Omeprazole (OMEPRAZOLE) 40 Mg Capsule.dr, 40 MG PO QDAY, CAP 05/13/18 Cilostazol (CILOSTAZOL) 50 Mg Tablet, 50 MG PO BID 05/13/18 Sennosides (SENNA) 8.6 Mg Tablet, 8.6 MG PO BID 05/13/18 Past Medical/Surgical History Past Medical History Neurologic: Reports hx of: seizures (febrile as a child) other neurologic history (hydrocephalus, spina bifida) Cardiovascular: Reports hx of: hyperlipidemia hypertension Gastrointestinal: Reports hx of: GERD Genitourinary: Reports hx of: kidney stones other history (renal tubular acidosis, bladder stones, suprapubic urinary catheter) Musculoskeletal: Reports hx of: scoliosis other musculoskeletal hx Infectious disease: Reports hx of: other infectious disease (sepsis 05/30) Events: REPORTS HX OF: Other events (history of sepsis, ventilated for several days x2) Past Surgical History Gastrointestinal: Reports hx of: cholecystectomy (2002) Musculoskeletal: Reports hx of: other musculosk surgery (rods from cervical to thoracics spine, several skeletal surgeries) Reviewed Nurses Notes: Yes Old Medical Records Reviewed: Yes Hx Smoking: No Smoking Status: Unknown if Ever Smoked Exposure to Second Hand Smoke?: Yes (family smokes outside) Hx Substance Use Disorder: No Hx Alcohol Use: No Constitutional Vital Sign - Last 24 Hours 07/31/18 07/31/18 07/31/18 07/31/18 20:12 20:13 20:21 20:36 Temp 98.3 Pulse 96 96 92 Resp 14 B/P (MAP) 116/66 (83) 116/66 Pulse Ox 92 92 94 O2 Delivery Room Air 07/31/18 07/31/18 07/31/18 07/31/18 20:51 21:06 21:21 21:36 Pulse 90 93 92 89 Pulse Ox 94 97 92 97 07/31/18 07/31/18 07/31/18 07/31/18 21:51 21:56 22:11 22:26 Pulse 88 87 88 94 Pulse Ox 95 92 96 94 07/31/18 07/31/18 07/31/18 07/31/18 22:41 22:56 23:11 23:26 Pulse 94 86 79 83 Pulse Ox 97 94 94 92 Physical Exam Vital signs stable, afebrile, pulse ox normal General Appearance: The patient is alert, has no immediate need for airway protection and no current signs of toxicity. Slightly pale appearing, skin warm and dry, alert and oriented 3 HEENT: Pupils equal and round no injection. TMs normal, oropharynx no redness or exudate, mucous. Membranes are moist Respiratory: Chest is non tender, lungs are clear to auscultation. No wheezing or rails Cardiac: regular rate and rhythm, distant heart sounds, no murmur Gastrointestinal: Abdomen is soft, mild epigastric tenderness, no rebound or guarding, no masses, bowel sounds normal. Musculoskeletal: Neck: Neck is supple and non tender. Lids adenopathy, no meningismus. Patient undergoing evaluation for thyroid enlargement Extremities have full range of motion and are non tender. Skin: No rashes or lesions. DIFFERENTIAL DIAGNOSIS: After history and physical exam differential diagnosis was considered for adult fever including but not limited to viral syndromes including influenza, urinary tract infection, pneumonia and sepsis. Medical Decision Making Data Points Result Diagram: 07/31/18 22107/31/18 2211 Laboratory Hematology Test 07/31/18 20:46 07/31/18 21:12 07/31/18 22:11 Urine Color Gloria Urine Clarity Clear Urine pH 6.0 pH (4.8-9.5) Urine Specific Neola 1.012 Urine Protein Negative mg/dL (NEGATIVE) Urine Glucose (UA) Negative mg/dL (NEGATIVE) Urine Ketones 20 mg/dL (NEGATIVE) Urine Blood Small (NEGATIVE) Urine Nitrite Positive (NEGATIVE) Urine Bilirubin Negative (NEGATIVE) Urine Urobilinogen 4.0 mg/dL (0.2-1.9) Urine Leukocyte Esterase Moderate (NEGATIVE) Urine RBC 4 /HPF (0-2/HPF) Urine WBC 26 /HPF (0-5/HPF) Urine Squamous Epithelial Cells None /LPF (NONE-FEW) Urine Transitional Epithelial Cells Few /LPF (NONE-FEW) Urine Bacteria Negative /HPF (NONE-FEW) Urine Mucus None /HPF (NONE-FEW) Human Chorionic Gonadotropin, Qual Negative (NEGATIVE) Influenza Virus Type A (PCR) Negative (NEGATIVE) Influenza Virus Type B (PCR) Negative (NEGATIVE) Red Blood Count 4.94 M/uL (4.17-5.56) Mean Corpuscular Volume 79.5 fL (80.0-96.0) Mean Corpuscular Hemoglobin 25.9 pg (26.0-33.0) Mean Corpuscular Hemoglobin Concent 32.6 g/dL (32.0-36.0) Red Cell Distribution Width 15.3 % (11.5-14.5) Mean Platelet Volume 7.1 fL (7.2-11.1) Neutrophils (%) (Auto) 62.3 % (39.4-72.5) Lymphocytes (%) (Auto) 25.2 % (17.6-49.6) Monocytes (%) (Auto) 11.8 % (4.1-12.4) Eosinophils (%) (Auto) 0.3 % (0.4-6.7) Basophils (%) (Auto) 0.4 % (0.3-1.4) Nucleated RBC Relative Count (auto) 0.1 /100WBC Neutrophils # (Auto) 6.8 K/uL (2.0-7.4) Lymphocytes # (Auto) 2.7 K/uL (1.3-3.6) Monocytes # (Auto) 1.3 K/uL (0.3-1.0) Eosinophils # (Auto) 0.0 K/uL (0.0-0.5) Basophils # (Auto) 0.0 K/uL (0.0-0.1) Nucleated RBC Absolute Count (auto) 0.01 K/uL Sodium Level 139 mmol/L (137-145) Potassium Level 3.4 mmol/L (3.5-5.0) Chloride Level 102 mmol/L (98-107) Carbon Dioxide Level 24 mmol/L (22-31) Blood Urea Nitrogen 11 mg/dl (7-18) Creatinine 0.60 mg/dl (0.52-1.04) Glomerular Filtration Rate Calc > 60.0 Random Glucose 87 mg/dl (75-110) Lactate 2.2 mmol/L (0.7-2.1) Calcium Level 8.8 mg/dl (8.4-10.2) Total Bilirubin 0.6 mg/dl (0.2-1.3) Aspartate Amino Transf (AST/SGOT) 23 U/L (0-35) Alanine Aminotransferase (ALT/SGPT) 28 U/L (0-56) Alkaline Phosphatase 115 U/L (0-126) C-Reactive Protein 21.4 mg/dl (<1.0) Total Protein 7.0 g/dl (6.3-8.2) Albumin 3.4 g/dl (3.5-5.0) Chemistry Test 07/31/18 20:46 07/31/18 21:12 07/31/18 22:11 Urine Color Gloria Urine Clarity Clear Urine pH 6.0 pH (4.8-9.5) Urine Specific Neola 1.012 Urine Protein Negative mg/dL (NEGATIVE) Urine Glucose (UA) Negative mg/dL (NEGATIVE) Urine Ketones 20 mg/dL (NEGATIVE) Urine Blood Small (NEGATIVE) Urine Nitrite Positive (NEGATIVE) Urine Bilirubin Negative (NEGATIVE) Urine Urobilinogen 4.0 mg/dL (0.2-1.9) Urine Leukocyte Esterase Moderate (NEGATIVE) Urine RBC 4 /HPF (0-2/HPF) Urine WBC 26 /HPF (0-5/HPF) Urine Squamous Epithelial Cells None /LPF (NONE-FEW) Urine Transitional Epithelial Cells Few /LPF (NONE-FEW) Urine Bacteria Negative /HPF (NONE-FEW) Urine Mucus None /HPF (NONE-FEW) Human Chorionic Gonadotropin, Qual Negative (NEGATIVE) Influenza Virus Type A (PCR) Negative (NEGATIVE) Influenza Virus Type B (PCR) Negative (NEGATIVE) White Blood Count 10.9 k/uL (4.5-11.0) Red Blood Count 4.94 M/uL (4.17-5.56) Hemoglobin 12.8 g/dL (12.0-16.0) Hematocrit 39.3 % (34.0-47.0) Mean Corpuscular Volume 79.5 fL (80.0-96.0) Mean Corpuscular Hemoglobin 25.9 pg (26.0-33.0) Mean Corpuscular Hemoglobin Concent 32.6 g/dL (32.0-36.0) Red Cell Distribution Width 15.3 % (11.5-14.5) Platelet Count 374 K/uL (150-450) Mean Platelet Volume 7.1 fL (7.2-11.1) Neutrophils (%) (Auto) 62.3 % (39.4-72.5) Lymphocytes (%) (Auto) 25.2 % (17.6-49.6) Monocytes (%) (Auto) 11.8 % (4.1-12.4) Eosinophils (%) (Auto) 0.3 % (0.4-6.7) Basophils (%) (Auto) 0.4 % (0.3-1.4) Nucleated RBC Relative Count (auto) 0.1 /100WBC Neutrophils # (Auto) 6.8 K/uL (2.0-7.4) Lymphocytes # (Auto) 2.7 K/uL (1.3-3.6) Monocytes # (Auto) 1.3 K/uL (0.3-1.0) Eosinophils # (Auto) 0.0 K/uL (0.0-0.5) Basophils # (Auto) 0.0 K/uL (0.0-0.1) Nucleated RBC Absolute Count (auto) 0.01 K/uL Glomerular Filtration Rate Calc > 60.0 Lactate 2.2 mmol/L (0.7-2.1) Calcium Level 8.8 mg/dl (8.4-10.2) Total Bilirubin 0.6 mg/dl (0.2-1.3) Aspartate Amino Transf (AST/SGOT) 23 U/L (0-35) Alanine Aminotransferase (ALT/SGPT) 28 U/L (0-56) Alkaline Phosphatase 115 U/L (0-126) C-Reactive Protein 21.4 mg/dl (<1.0) Total Protein 7.0 g/dl (6.3-8.2) Albumin 3.4 g/dl (3.5-5.0) Urinalysis Test 07/31/18 20:46 Urine Color Gloria Urine Clarity Clear Urine pH 6.0 pH (4.8-9.5) Urine Specific Neola 1.012 Urine Protein Negative mg/dL (NEGATIVE) Urine Glucose (UA) Negative mg/dL (NEGATIVE) Urine Ketones 20 mg/dL (NEGATIVE) Urine Blood Small (NEGATIVE) Urine Nitrite Positive (NEGATIVE) Urine Bilirubin Negative (NEGATIVE) Urine Urobilinogen 4.0 mg/dL (0.2-1.9) Urine Leukocyte Esterase Moderate (NEGATIVE) Urine RBC 4 /HPF (0-2/HPF) Urine WBC 26 /HPF (0-5/HPF) Urine Squamous Epithelial Cells None /LPF (NONE-FEW) Urine Transitional Epithelial Cells Few /LPF (NONE-FEW) Urine Bacteria Negative /HPF (NONE-FEW) Urine Mucus None /HPF (NONE-FEW) Microbiology Microbiology Date/Time Source Procedure Growth Status 07/31/18 22:11 Blood Peripheral Draw Blood Culture - Preliminary NO GROWTH AFTER 2 DAYS, REINCUBATED Resulted 07/31/18 21:36 Blood Port Draw Blood Culture - Preliminary NO GROWTH AFTER 2 DAYS, REINCUBATED Resulted 07/31/18 20:46 Cath Urine Urine Culture - Preliminary Resulted EKG/Imaging Imaging X-ray: Single view portable chest x-ray was obtained. I viewed the images myself on the PACS system. My interpretation of the images is: No infiltrate, no effusion, normal mediastinum. The radiologist interpretation had no clinically significant variation from this interpretation. ED Course/Re-evaluation Clinical Indication for ER IV: Hydration, IV Access ED Course Patient was admitted to an examination room. H&P was done. The differential diagnoses was considered. Patient was evaluated extensively with diagnostic blood work, chest x-ray and urinalysis. There is be a mild urinary tract infection. She does have a chronic indwelling catheter. A urinary cultures ordered. Patient be covered with Cipro. She is chronically on Keflex for skin breakdown and prevention of infection of her spina bifida closure. Patient's advised to follow-up with her primary care next week if unimproved. Patient advised to return to the ER over the weekend for any worsening. Decision to Disposition Date: Jul 31, 2018 Decision to Disposition Time: 20:53 Depart Departure Latest Vital Signs Vital Signs Date Time Temp Pulse Resp B/P (MAP) Pulse Ox O2 Delivery O2 Flow Rate FiO2 07/31/18 23:26 83 92 07/31/18 20:13 98.3 14 116/66 Room Air Impression: Primary Impression: Urinary tract infection Condition: Improved Disposition: HOME OR SELF-CARE Referrals: KERMIT LOVE MD (PCP) New Scripts Ciprofloxacin Hcl 500 Mg Tab (CIPRO 500 MG TAB) 500 Mg Tablet 500 MG PO BID for infection, #14 Prov: ARUN LYON DO 07/31/18 Ondansetron (ZOFRAN ODT) 4 Mg Tab.rapdis 4 MG PO every 6 hours PRN for NAUSEA/VOMITING, #10 TAB TAKE 1 TABLET BY MOUTH EVERY 12 HOURS Prov: ARUN LYON DO 07/31/18 Patient Instructions: Urinary Tract Infection in Women (ED) Additional Instructions: Follow-up with your primary care physician or [facility] next week Return to the ER for any worsening Problem Qualifiers Primary Impression: Urinary tract infection Urinary tract infection type: acute cystitis Hematuria presence: without hematuria Qualified Codes: N30.00 - Acute cystitis without hematuria ARUN LYON DO Jul 31, 2018 20:20
[2018-07-31 22:17] LABS: PLATELET COUNT, AUTOMATED 374 K/uL (150-450)
--- NOTE | 2018-07-31 23:00 | RADIOLOGY IMAGING REPORT ---
FACILITY: [facility] [place] PATIENT NAME: Nguyen Arce : 1985 MR: [id number] V: [id number] EXAM DATE: ORDERING PHYSICIAN: ARUN LYON TECHNOLOGIST: Location: [facility] Patient: Nguyen Arce : 1985 Visit/Account:[id number] Date of Sevice: 07/31/2018 PORTABLE CHEST: Indication: Fever. Technique: A single frontal film was obtained. Comparison: 05/13/2018 Lines and tubes: The port catheter and the [employer] shunt catheter appear unchanged. Skeletal and soft tissue structures: There is stable scoliosis in the thoracic spine. The hardware in the upper lumbar spine appears intact and unchanged. No acute skeletal deformity is identified. Heart and mediastinum: Within normal limits. Lung chanel: Well-expanded and clear. No focal or diffuse opacities are identified. Pleural spaces: Unremarkable. Impression: No acute process or significant change. Report Dictated By: Sigifredo Richmond MD at 07/31/2018 10:55 PM Report E-Signed By: Sigifredo Richmond MD at 07/31/2018 10:57 PM WSN:[email or web address]
[2018-07-31] MEDS ORDERED: CIPROFLOXACIN 500 MG TAB PO ONE ×2 (23:15)
[2018-07-31] MEDS ORDERED: ONDANSETRON 4 MG ODT TH SL ONE (23:15)
[2018-07-31] MEDS ORDERED: [UNRECOGNIZED DRUG - OTHER] IV PRN (23:15)
[2018-07-31] MEDS ORDERED: CIPR-344 PO (23:16)
[2018-07-31] MEDS ORDERED: ONDA4TAB PO (23:16)
[2018-07-31] MEDS ORDERED: HEPARIN FLSH (PORT) 500 UN/5ML ONE (23:35)
== END 2018-07-31 23:45 | disposition home or self-care (01) ==
LOC: ER 20:20
DX: N30.00 Acute cystitis without hematuria (principal)
CPT/HCPCS: 36415; 71045; 81001; 83605; 84703; 85025; 86140; 87040; 87088; 87502; 96361; 96374; 99284; A9270; J1642; J2405; J7030; Q0162; 82040; 82247; 82310; 82374; 82435; 82565; 82947; 84075; 84132; 84155; 84295; 84450; 84460; 84520; 87077; 87186; S0119

== ENCOUNTER → 2018-08-03 | Outpatient (REF) | payer MEDICARE, MEDICAID ==
[2018-05-14 12:33] VITALS: BMI 31.4
[~2018-08-03] MED LIST changes: +CIPR-344 PO; +ONDA4TAB PO
== END ==
PROVIDERS: ATTEND Emergency Medicine
DX: R11.2 Nausea with vomiting, unspecified (principal)
CPT/HCPCS: 81001; 82040; 82247; 82310; 82374; 82435; 82565; 82947; 84075; 84132; 84155; 84295; 84450; 84460; 84520; 85027; 86140; 87088

== ENCOUNTER → 2018-08-19 | Outpatient (REF) | payer MEDICARE, MEDICAID ==
[2018-05-14 12:33] VITALS: BMI 31.4
[~2018-08-19] MED LIST changes: +CITR30IR BLADIN; +FLUC150T40 PO; +HYOS-50 SL; +MANDELAMINE PO; +MEDR150D IM; +METH1GPT PO
== END ==
LOC: ZZSENDIN 15:56
PROVIDERS: ATTEND Emergency Medicine
DX: E87.6 Hypokalemia (principal)
CPT/HCPCS: 82310; 82374; 82435; 82565; 82947; 84132; 84295; 84520

== ENCOUNTER → 2018-08-19 | Outpatient (REF) | payer MEDICARE, MEDICAID ==
[2018-05-14 12:33] VITALS: BMI 31.4
[~2018-08-19] MED LIST changes: -SENN8.6T34 PO; +SENN8.6T35 PO
== END ==
LOC: ZZSENDIN 15:59
PROVIDERS: ATTEND Urology
DX: N39.0 Urinary tract infection, site not specified (principal)
CPT/HCPCS: 81001; 87088

== ENCOUNTER → 2018-10-16 | Outpatient (CLI) | payer MEDICARE, MEDICAID ==
[2018-05-14 12:33] VITALS: BMI 31.4
--- NOTE | 2018-10-16 11:29 | RADIOLOGY IMAGING REPORT ---
FACILITY: [facility] PATIENT NAME: Nguyen Arce : 1985 MR: [id number] V: [id number] EXAM DATE: ORDERING PHYSICIAN: KATHERINE GOODWIN TECHNOLOGIST: [place] [facility] [place] Ar[place] : 1985 Visit/Account:[id number] Date of Sevice: 10/16/2018 CT ABDOMEN PELVIS W/O CON HISTORY: UTI TECHNIQUE: Axial images acquired through the abdomen/pelvis. Coronal and sagittal reformatting also performed. No IV contrast administered.Dose Lowering Technique One of the following dose optimization techniques was utilized in the performance of this exam: Autom ated exposure control; adjustment of the mA and/or kV according to the patient's size; or use of an i terative reconstruction technique. Specific details can be referenced in the facility's radiology C T exam operational policy. COMPARISON: None. FINDINGS: Visualized lung bases: There is a small amount of consolidation in the posterior medial left lower l obe which may represent scarring versus atelectasis Hepatobiliary: There appears to been a cholecystectomy Spleen: Negative. Adrenals: Negative. Pancreas: Negative. Kidneys ureters and bladder: Kidneys are not ideally evaluated due to the lack of intravenous contras t. There is a lobular contour to both kidneys. Calcifications are identified in both kidneys some o f which appear to be parenchymal. A 4 mm calcification lower pole the right kidney appears to be wit hin a calyx. There are several small 1 to 3 mm calculi in the mid left kidney which appeared to be w ithin the calyces. There is no evidence of renard hydronephrosis. The bladder is partially decompres sed with a suprapubic catheter. There is air within the superior portion of the bladder which may be related to the catheter placement although infection with a gas-forming organism or vesicle colonic fistula cannot be totally excluded Genitalia: Negative. GI: Hyperdense material within the appendix may represent appendicoliths although no surrounding inf lammatory changes seen. There is a small hiatal hernia Vessels/spaces/nodes: Negative. Bones/soft tissues: There are extensive postsurgical changes from posterior fusion of the thoracic a nd lumbar spine. There is been a wide posterior decompression throughout the lumbar spine. Gas is n oted in the disc space at L5-S1 Additional findings: None pertinent. IMPRESSION: Kidneys are not ideally evaluated due to lack of intravenous contrast. There is a lobular contour to both kidneys and bilateral renal calcifications some of which appear to be intraparenchymal and some appear to be within the calyces. There is no evidence of renard hydronephrosis. The bladder is partially decompressed with the suprapubic catheter. There is air within the superior portion the bladder which may be related to catheter placement although infection with gas-forming o rganism or vesicle colonic fistula cannot be totally excluded. Additional chronic findings as described Report Dictated By: Lauren Campbell MD at 10/16/2018 10:19 AM Report E-Signed By: Lauren Campbell MD at 10/16/2018 11:25 AM WSN:[id number]
== END ==
LOC: CT 08-26 00:58
PROVIDERS: ATTEND Urology
DX: N39.0 Urinary tract infection, site not specified (principal); N28.89 Other specified disorders of kidney and ureter; Z90.49 Acquired absence of other specified parts of digestive tract; K44.9 Diaphragmatic hernia without obstruction or gangrene
CPT/HCPCS: 74176

== ENCOUNTER → 2019-04-07 | Outpatient (REF) | payer MEDICARE, MEDICAID ==
[2018-05-14 12:33] VITALS: BMI 31.4
[~2019-04-07] MED LIST changes: +PHEN97.517 PO; -[UNRECOGNIZED DRUG - CODE] PO
== END ==
LOC: ZZSENDIN 17:53
PROVIDERS: ATTEND Emergency Medicine
DX: Q05.9 Spina bifida, unspecified (principal)
CPT/HCPCS: 82607; 83036; 85027